=== PATIENT | female | born 1950 | race Caucasian/White ===

== ENCOUNTER 2018-03-12 12:03 | Emergency (ER) | payer MEDICARE, BC ==
[~2018-03-12] VITALS: Ht 160 cm; Wt 61.8 kg
[~2018-03-12 12:03] MED LIST: AVAPRO; PRILOSEC10 MG PO
[2018-03-12 12:07] VITALS: TEMP 98.4
[2018-03-12 12:46] LABS: BASO % 0.4 % (0.0-2.0); EOS # 0.1 (0.0-0.7); GRAN # 5.1 (1.4-6.5); GRAN % 73.6 % (42.2-75.2); HEMATOCRIT 42.8 % (37.0-47.0); HEMOGLOBIN 13.9 g/dl (12.5-16.0); LYMPH # 1.2 (1.2-3.4); LYMPH % 16.7 % (20.0-51.0); MEAN CELL VOLUME 97 fl (80.0-100.0); MEAN CORPUSCULAR HEMOGLOBIN 31 pg (27.0-31.0); MEAN CORPUSCULAR HGB CONC 33 g/dl (33.0-37.0); MEAN PLATELET VOLUME 8.9 fl (7.4-10.4); MONO # 0.6 (0.1-0.6); PLATELET COUNT 356 K/mm3 (130-400); RED BLOOD COUNT 4.42 M/mm3 (4.10-5.30); REDCELL DISTRIBUTION WIDTH-CV 11.9 % (11.5-14.5)
[2018-03-12 12:56] LABS: INR 0.9 (0.8-3.0); PROTHROMBIN TIME 10.3 SECONDS (9.7-12.8)
[2018-03-12 12:58] LABS: PARTIAL THROMBOPLASTIN TIME 36.9 SECONDS (26.0-37.0)
[2018-03-12 13:35] LABS: ALBUMIN 4.2 gm/dL (3.5-5.0); BILIRUBIN,TOTAL 0.3 mg/dL (0.0-1.0); CALCIUM 9.2 mg/dL (8.4-10.2); CREATININE, serum 1.02 mg/dL (0.52-1.25); POTASSIUM 4.4 mmol/L (3.4-5.0); TOTAL PROTEIN 7.2 gm/dL (6.4-8.2)
[2018-03-12] MEDS ORDERED: NEXIUM 40MG40 MG PO (15:20)
[2018-03-12 15:27] VITALS: BP 133/75; PULSE 66
== END 2018-03-12 15:28 | disposition home or self-care (01) ==
LOC: COL.ER 12:03
PROVIDERS: Emergency Medicine
DX: K92.1 Melena (principal); R10.9 Unspecified abdominal pain
CPT/HCPCS: C9113; J7030

== ENCOUNTER → 2019-05-08 | Outpatient (CLI) | payer MEDICARE, BC ==
[~2019-05-08] MED LIST changes: +NEXIUM 40MG40 MG PO
== END ==
LOC: MC.RAD 14:12
DX: Z12.31 Encounter for screening mammogram for malignant neoplasm of breast (principal); R92.1 Mammographic calcification found on diagnostic imaging of breast

== ENCOUNTER → 2019-05-12 | Outpatient (CLI) | payer MEDICARE, BC | LOC: MC.RAD 08:30 | DX: R92.1 Mammographic calcification found on diagnostic imaging of breast (principal) ==

== ENCOUNTER → 2019-05-17 | Outpatient (CLI) | payer MEDICARE, BC | LOC: MC.RAD 09:50 | DX: R92.0 Mammographic microcalcification found on diagnostic imaging of breast (principal); Z98.82 Breast implant status ==

== ENCOUNTER → 2020-06-19 | Outpatient (CLI) | payer MEDICARE, BC | LOC: MC.RAD 06-05 08:45 | DX: Z12.31 Encounter for screening mammogram for malignant neoplasm of breast (principal); Z98.82 Breast implant status ==

== ENCOUNTER 2020-10-08 18:18 | Emergency (ER) | payer MEDICARE, BC ==
[~2020-10-08] VITALS: Ht 160 cm; Wt 63.6 kg
[2020-10-08 18:36] VITALS: TEMP 98.5
[2020-10-08] MEDS ORDERED: NORCO 325 MG-51 TAB PO (20:04)
[2020-10-08 21:10] VITALS: BP 145/61; PULSE 80
== END 2020-10-08 21:15 | disposition home or self-care (01) ==
LOC: COL.ER 18:18
DX: S52.502A Unspecified fracture of the lower end of left radius, initial encounter for closed fracture (principal); S52.612A Displaced fracture of left ulna styloid process, initial encounter for closed fracture; W18.09XA Striking against other object with subsequent fall, initial encounter
CPT/HCPCS: J1170; J2405; J3010

== ENCOUNTER → 2021-09-09 | Outpatient (CLI) | payer MEDICARE, BC ==
[~2021-09-09] MED LIST changes: +NORCO 325 MG-51 TAB PO
== END ==
LOC: MC.RAD 08-04 09:00
DX: Z12.31 Encounter for screening mammogram for malignant neoplasm of breast (principal)

== ENCOUNTER → 2024-01-26 | Outpatient (CLI) | payer MEDICARE, BC | LOC: MC.RAD 10:43 | DX: Z12.31 Encounter for screening mammogram for malignant neoplasm of breast (principal) ==